=== PATIENT | male | born 1970 ===

== ENCOUNTER → 2020-06-07 11:39 | Outpatient (BNVA) | payer MEDICARE, SELFPAY | PROVIDERS: PCP Pediatrics; Visit Provider Internal Medicine Cardiovascular Disease | DX: Z45.02 Encounter for adjustment and management of automatic implantable cardiac defibrillator (principal); I10 Essential (primary) hypertension; I25.5 Ischemic cardiomyopathy; I25.10 Atherosclerotic heart disease of native coronary artery without angina pectoris; Z79.01 Long term (current) use of anticoagulants | CPT/HCPCS: 85025; 85610 ==

== ENCOUNTER → 2020-06-27 05:53 | Day surgery (SDC) | payer MEDICARE, SELFPAY ==
[2020-06-27 07:26] LABS: INR 1.23 (0.8-1.2)
== END ==
PROVIDERS: PCP Pediatrics; Visit Provider Internal Medicine Cardiovascular Disease
DX: Z45.02 Encounter for adjustment and management of automatic implantable cardiac defibrillator (principal); Z01.812 Encounter for preprocedural laboratory examination; Z45.010 Encounter for checking and testing of cardiac pacemaker pulse generator [battery]
CPT/HCPCS: 85610

== ENCOUNTER 2020-07-08 07:00 | Day surgery (SDC) | payer MEDICARE, SELFPAY ==
--- NOTE | 2020-07-05 12:42 | SUR.PREOP ---
PAT NOTE DR BENNETT WAS CALLED AT 0830 WITH THE PATIENT'S COVID NEGATIVE RESULT WELL AN INR OF 4.17. ORDERS RECEIVED FOR THE PATIENT TO REPEAT THE INR NOW IN [facility]. THE PATIENT WAS CALLED AND WILL HAVE THE [facility] FAX THE INR RESULTS TO [facility]. THE RESULTS WERE RECEIVED AT 1031. INR OF 3.[address] BENNETT. ORDERS WERE RECEIVED TO HAVE THE PATIENT HAVE INR RE-DRAWN ON SATURDAY MORNING. IF THE INR IS WNL THE PROCEDURE WILL BE DONE SaturdayJul AT 0830. THE PATIENT WAS NOTIFIED WELL THE [facility], ABOUT THE CHANGE. SCHEDULING WAS ALSO NOTIFIED.
[2020-07-08] VITALS (13 sets, daily range): BP systolic 102–168; BP diastolic 68–110; PULSE 80–82; RESP 0–28; TEMP 37; O2SAT 92–94
[2020-07-08] MEDS: sodium chloride 0.9% 1,000 ML 75 ML IV (07:54)
--- NOTE | 2020-07-08 08:28 | W.PM.OPSUD ---
Surgery/Procedure H&P Update DATE OF PROCEDURE: July 08, 2020 DATE H&P PERFORMED: 07/08/20 PREOP DIAGNOSIS: ICD,Elective replacement indication PLANNED PROCEDURE: Operation Date: 07/08/20 08:30 Proposed Procedures p Pacemaker Generator Change(Not Applicable) - Ami Haskins MD PATIENT REASSESSED PRIOR TO SEDATION, WITH NO CHANGE NOTED: Yes PHYSICAL EXAM: alert, oriented x 3, clear to auscultation bilaterally and regular rate & rhythm (Atrial flutter with controlled ventricular response rate) AIRWAY EVAL/ANESTHESIA PLAN: normal airway, see other exam findings, ASA III, Risks, benefits & alternatives of sedation and/or procedure discussed and Patient agrees to continue as planned
--- NOTE | 2020-07-08 08:30 | PM.HP ---
Providers/Chief Complaint Admitting Physician: LUDWIN Haskins MD Primary Care Provider: Allen Blanchard MD Chief Complaint: ICD, elective replacement indication History of Present Illness Stephen Miller is a 50 year old male with a history of coronary disease, myocardial infarction, coronary artery bypass surgery and previous PCI had a ICD implantation in 2013 for ventricular fibrillation. His ejection fraction was around 30 to 35%. He was found to have elected to replace medication for the ICD during the routine follow-up evaluation. ICD revision was requested by Dr. Guerrero. Patient denies any chest pain or chest tightness. No unusual shortness of breath. No fever or chills. No cough. He had a COVID-19 test and was found to be negative. Review of Systems Narrative: CONSTITUTIONAL: No fever or chills. EYES: No blurring of vision or other visual disturbances lately. ENT: No hoarseness of voice, auditory disturbances or sore throat. CARDIOVASCULAR: As mentioned above. RESPIRATORY: Has baseline shortness of breath with activities. GASTROINTESTINAL: No hematemesis or melena. GENITOURINARY: No dysuria or hematuria. INTEGUMENTARY: No skin rashes or history of skin cancer. NEURO: No transient ischemic attacks or amaurosis. PSYCHIATRIC: No history of psychosis or major depression. HEMATOLOGIC: No bleeding disorders or significant anemia. ENDOCRINE: No history of polyuria or polydipsia. MUSCULOSKELETAL: No recent joint pain or swelling. ALLERGY/IMMUNOLOGY: As mentioned above. Medications/Allergies Home Medications Medication Instructions Recorded Confirmed Last Taken Type amiodarone 200 mg tablet 200 mg PO DAILY #90 tab 05/16/20 07/07/20 Unknown Rx atenolol 25 mg tablet 25 mg PO DAILY 05/16/20 07/07/20 Unknown History bumetanide 2 mg tablet 2 mg PO DAILY 05/16/20 07/07/20 Unknown History clonazepam 1 mg tablet 1 mg PO BID 05/16/20 07/07/20 Unknown History clopidogrel 75 mg tablet 75 mg PO DAILY 05/16/20 07/07/20 Unknown History glipizide 10 mg tablet 10 mg PO DAILY 05/16/20 07/07/20 Unknown History metformin 500 mg tablet 500 mg PO BID 05/16/20 07/07/20 Unknown History potassium chloride 20 mEq 20 meq PO BID 05/16/20 07/07/20 Unknown History tablet,extended release(part/cryst) ramipril 10 mg capsule 20 mg PO DAILY cap 05/16/20 07/07/20 Unknown History simvastatin 40 mg tablet 40 mg PO DAILY #90 tab 05/16/20 07/07/20 Unknown Rx warfarin 10 mg tablet 10 mg PO DAILY 05/16/20 07/07/20 07/03/20 History allopurinol 100 mg tablet 100 mg PO DAILY tab 06/07/20 07/07/20 Unknown History enoxaparin 120 mg/0.8 mL 120 mg SUBCUT Q12H #3.2 ml 06/27/20 07/07/20 Unknown Rx subcutaneous syringe Allergies Allergy/AdvReac Type Severity Reaction Status Date / Time No Known Allergies Allergy Verified 06/07/20 11:03 PFSH Acute PFSH: Medical History (Updated 07/08/20 @ 08:35 by Ami Haskins MD) Atherosclerotic heart disease of [place] coronary artery without angina pectoris CAD (coronary artery disease) CHF (congestive heart failure) Clotting disorder Diabetes mellitus type 2 in obese Blood sugar has been fairly under control Hypertension Ischemic cardiomyopathy Obesity ANI (obstructive sleep apnea) Surgical History S/P CABG x 2 Social History Smoking and tobacco status: former smoker Vitals/I&O/Wt Last Vital Signs Pulse 80 07/08/20 08:15 Resp 0 L 07/08/20 08:15 BP 137/91 07/08/20 08:15 Pulse Ox 92 07/08/20 08:15 Physical Exam Narrative: EXAM NARRATIVE: GENERAL: The patient is alert and oriented times three. Not in any acute distress. HEENT: No significant pallor, icterus or lymphadenopathy.Oral cavity: There are no mucous membrane lesions. NECK: Trachea appears to be central. No masses noted. No JVD or thyromegaly appreciated. RESPIRATORY: Chest is symmetrical. No intercostals muscle retraction or any accessory muscle activation. There is no chest wall tenderness. Breath sounds are heard bilaterally. No rales or rhonchi heard. No evidence of any consolidation. BREASTS: Deferred. HEART: The heart sounds are normal. No S3 or S4. No significant murmurs. No pericardial rub ABDOMEN: No vessel pulsations or distention. No tenderness. No organomegaly appreciated. Bowel sounds are normally heard. : Deferred. RECTAL: Deferred. LYMPHATIC: No lymphadenopathy noted in the neck or groin. EXTREMITIES: No edema or cyanosis. No clubbing. Peripheral pulses are palpated in fairly good volume and amplitude MUSCULOSKELETAL: No acute joint deformities or swelling SKIN: There are no significant rashes or ecchymosis NEUROPSYCHIATRIC: The patient is alert and oriented x3. Appears to be in a good mood. No tremors or rigidity noted. A&P Assessment and plan (1) ICD (implantable cardioverter-defibrillator) battery depletion: Patient requires ICD revision. Discussed with the patient, the risk and benefits. The risk of bleeding, hematoma, vascular injury, infection, and other concomitant complications were explained in detail. The patient [] understood this well and consented to proceed. Patient is n.p.o. He is off the Coumadin. The INR was 1.6 yesterday. We will go ahead and plan for the procedure today. Status: Acute (2) Ischemic cardiomyopathy: Currently stable with no evidence of decompensation Status: Acute (3) Atherosclerotic heart disease of [place] coronary artery without angina pectoris: Patient has no chest pain or chest tightness. Status: Acute Qualifiers: [place] vs. transplanted heart: [place] heart Qualified Code(s): I25.10 - Atherosclerotic heart disease of [place] coronary artery without angina pectoris (4) ANI (obstructive sleep apnea): Patient is on CPAP and has been compliant Status: Acute (5) Hypertension: The blood pressure seems to be fairly under control Status: Acute Qualifiers: Hypertension type: essential hypertension Qualified Code(s): I10 - Essential (primary) hypertension (6) Obesity: Status: Acute Qualifiers: Body mass index: BMI 60.0-69.9 Obesity classification: adult class 3 (BMI >= 40) Obesity type: due to excess calories Serious obesity comorbidity presence: with serious comorbidity Qualified Code(s): E66.01 - Morbid (severe) obesity due to excess calories; Z68.44 - Body mass index [BMI] 60.0-69.9, adult (7) Diabetes mellitus type 2 in obese: Status: Acute (8) Clotting disorder: Of the Coumadin now. Will be restarted after the procedure Status: Acute Additional A&P Information Patient will be kept overnight for IV antibiotics. He will be discharged home in the morning. Attestations Medical Necessity Statement*: Patient to be admitted as outpatient in a bed. He will be given IV antibiotics for the next 24 hours. Discharge home in the morning Coding Level of Care Code Acute Machine Woodworking Sander for Chg Fwd Diagnoses ICD (implantable cardioverter-defibrillator) battery depletion Z45.02 Ischemic cardiomyopathy I25.5 Atherosclerotic heart disease of [place] coronary artery without angina pectoris I25.10 [place] vs. transplanted heart: [place] heart ANI (obstructive sleep apnea) G47.33 Hypertension I10 Hypertension type: essential hypertension Obesity E66.01; Z68.44 Body mass index: BMI 60.0-69.9 Obesity classification: adult class 3 (BMI >= 40) Obesity type: due to excess calories Serious obesity comorbidity presence: with serious comorbidity Diabetes mellitus type 2 in obese E11.69; E66.9 Clotting disorder D68.9
--- NOTE | 2020-07-08 10:09 | PM.OP ---
Operative Report Date of procedure: July 08, 2020 Pre-op Diagnosis: ICD,Elective replacement indication Procedure: PROCEDURE: ICD REVISION PREOPERATIVE DIAGNOSIS: ICD elective replacement indication. POSTOPERATIVE DIAGNOSIS: ICD elective replacement indication. ESTIMATED BLOOD LOSS: Around 5 milliliters. COMPLICATIONS: None. BRIEF HISTORY: The patient is 50-year-old white male who had an ICD implantation for ventricular fibrillation, ischemic cardiomyopathy. The patient was found to have elective replacement indication, during routine office followup evaluation. For further management of patient's condition and for the symptomatic bradycardia, the patient required an ICD revision. Patient has a history of intermittent atrial fibrillation and a clotting disorder The procedure was explained to the patient and his in detail with the risks and benefits. The risks of bleeding, hematoma, vascular injury, infection, blood clotting while being of the oral anticoagulant and other concomitant complications were explained in detail, which the patient understood well and consented to proceed. PROCEDURES PERFORMED: 1. Explantation of the old ICD device . 2. Implantation of the new ICD device The patient brought to the Cardiac Burn Table Operator. The left side of the neck and the subclavian area were cleaned and draped in a sterile fashion. 1% Xylocaine was used for local anesthetic agent. A 2 inch long incision was made just below the previous pacemaker scar. By sharp and blunt dissection, the ICD pocket was accessed. The old generator was delivered from the pocket. The generator was detached from the lead s. The new generator was attached to the lead. The ICD pocket was copiously irrigated with vancomycin solution. Complete hemostasis was achieved. The device was inserted in an antibiotic pouch,Tyrx. Complete hemostasis achieved. Sponge counts were confirmed. The ICD pocket was closed in layers. Skin was approximated using 4-0 Vicryl. EXPLANTED DEVICE: ICD Device: Date of implant 08/22/2013 Brand: [employer]. Model number: [id number]. Serial number: [id number]. IMPLANTED DEVICES: Ventricular Lead: Date of implantation: 08/22/2013 Model number: [id number] Serial number: [id number] Make: [employer]. Atrial Lead Date of implantation 08/22/2013 Model number [id number] Serial [id number] Implanted Generator: Date of implantation 07/08/2020 Brand: Leonardo Morgan DR. Model number: [id number] Serial number: [id number] TYRX The absorbable antibacterial envelope, large; make is [employer]onic The reference number is [id number]; lot number is [id number] Stimulation Threshold: Through the Device--the ventricular sensing was 11.2 millivolts. Lead impedance was 440 ohms and the pacing threshold was 0.75 volts at .5 milliseconds. The atrial sensing was 2.4 millivolts(pt was in atrial flutter). The lead impedance was 610 ohms and the pacing threshold was not obtained because of the atrial flutter. The HV lead impedance was 87 ohms The pacemaker was set for DDDR mode with an upper rate of 130 and a lower rate of 60. The DFT testing was not done The pacemaker was set for a DDDR mode-60/120 A pressure dressing was applied over the ICD site. The patient was transferred back to medical floor in stable condition.
[2020-07-08] MEDS: lisinopril 20 mg Tablet 40 MG PO (10:46)
[2020-07-08] MEDS: clopidogrel 75 mg Tablet PO (10:46)
[2020-07-08] MEDS: atorvastatin 40 mg Tablet 20 MG PO (10:46)
[2020-07-08] MEDS: enoxaparin 120 mg/0.8 mL Syringe SUBCUT (10:47)
--- NOTE | 2020-07-08 15:39 | PC.NURSE ---
up in room no distress at this time . to bsc in room at this time
[2020-07-08] MEDS: potassium chloride ER 20 mEq Tablet PO (17:31)
[2020-07-08] MEDS: metformin 500 mg Tablet PO (17:31)
[2020-07-08] MEDS: CLONazepam 1 mg Tablet PO (17:31)
[2020-07-08] MEDS: ceFAZolin 3,000 MG in sodium chloride 0.9% (100 ml) 100 ML 200 MG IV (17:32)
[2020-07-08] MEDS: HYDROcodone-acetaminophen 5-325 mg Tablet 1 TAB PO (18:16)
[2020-07-09] VITALS (8 sets, daily range): BP systolic 93–128; BP diastolic 63–89; PULSE 80; RESP 10–20; TEMP 36.9–37; O2SAT 90
[2020-07-09] MEDS: enoxaparin 120 mg/0.8 mL Syringe SUBCUT ×2 (00:25→11:11)
[2020-07-09] MEDS: ceFAZolin 3,000 MG in sodium chloride 0.9% (100 ml) 100 ML 200 MG IV (01:03)
[2020-07-09] MEDS: potassium chloride ER 20 mEq Tablet PO (08:48)
[2020-07-09] MEDS: atorvastatin 40 mg Tablet 20 MG PO (08:48)
[2020-07-09] MEDS: clopidogrel 75 mg Tablet PO (08:48)
[2020-07-09] MEDS: CLONazepam 1 mg Tablet PO (08:48)
[2020-07-09] MEDS: allopurinol 100 mg Tablet PO (08:48)
[2020-07-09] MEDS: bumetanide 1 mg Tablet 2 MG PO (08:49)
[2020-07-09] MEDS: lisinopril 20 mg Tablet 40 MG PO (08:49)
[2020-07-09] MEDS: atenolol 50 mg Tablet 25 MG PO (08:49)
[2020-07-09] MEDS: amiodarone 200 mg Tablet PO (08:49)
--- NOTE | 2020-07-09 10:43 | PM.DCS ---
Discharge Providers Date of Discharge: July 09, 2020 Attending Provider at Discharge: Natalia Fairbanks MD Primary Care Provider: Allen Blanchard MD Diagnoses at Discharge Discharge Diagnosis (1) ICD (implantable cardioverter-defibrillator) battery depletion: Status: Acute Permanent problem details: s/p ICD generator change -Doing well post procedure. (2) Ischemic cardiomyopathy: Status: Acute (3) Atherosclerotic heart disease of [place] coronary artery without angina pectoris: Status: Acute Qualifiers: [place] vs. transplanted heart: [place] heart Qualified Code(s): I25.10 - Atherosclerotic heart disease of [place] coronary artery without angina pectoris (4) ANI (obstructive sleep apnea): Status: Acute (5) Hypertension: Status: Acute Qualifiers: Hypertension type: essential hypertension Qualified Code(s): I10 - Essential (primary) hypertension (6) Obesity: Status: Acute Qualifiers: Body mass index: BMI 60.0-69.9 Obesity classification: adult class 3 (BMI >= 40) Obesity type: due to excess calories Serious obesity comorbidity presence: with serious comorbidity Qualified Code(s): E66.01 - Morbid (severe) obesity due to excess calories; Z68.44 - Body mass index [BMI] 60.0-69.9, adult (7) Diabetes mellitus type 2 in obese: Status: Acute Permanent problem details: Blood sugar has been fairly under control (8) Clotting disorder: Status: Acute Reason for Visit Reason for Visit: ICD, elective replacement indication Hospital Course Hospital Course 50-year-old man with past medical history of hypertension, hyperlipidemia, coronary artery disease s/p CABG x2, PCI in 2010, systolic congestive heart failure with EF of 30 to 35%, status post ICD placement. Patient's ICD was at [facility] and was admitted electively for generator change out. He did not have any recent ICD discharge and only had 1 shock somewhere in 2012. His coronary artery disease is stable. He used to follow with Dr. Allen Ng in [place]. We do not have records from his prior cardiology practice however patient is on amiodarone and Coumadin. He likely has A. fib history. 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 He is on long-term oral anticoagulation with Coumadin. Recently had to be taken off the Coumadin because of some bleeding complications. He has not had any recent thromboembolic episodes. He underwent explantation of the old ICD device and implantation of the new ICD device yesterday. IMPLANTED DEVICES: Date of implantation 07/08/2020 Brand: Leonardo Morgan DR. Model number: [id number] Serial number: [id number] Stimulation Threshold: Through the Device--the ventricular sensing was 11.2 millivolts. Lead impedance was 440 ohms and the pacing threshold was 0.75 volts at .5 milliseconds. The atrial sensing was 2.4 millivolts(pt was in atrial flutter). The lead impedance was 610 ohms and the pacing threshold was not obtained because of the atrial flutter. The HV lead impedance was 87 ohms. The pacemaker was set for DDDR mode with an upper rate of 130 and a lower rate of 60. The DFT testing was not done The pacemaker was set for a DDDR mode-60/120 Patient is doing well this morning and is eager to go home. Physical Exam Narrative: EXAM NARRATIVE: GENERAL:obese man sitting in bed in no acute distress HEENT: Extraocular movement intact. Pupils equal round reactive to light. No pallor or icterus. NECK: central trachea, No JVD. CARDIOVASCULAR SYSTEM: S1-S2 regular. No S3 or S4 present. No murmur rubs or gallops. RESPIRATORY SYSTEM: Chest clear to auscultation. No wheezes rhonchi or rubs heard. No use of accessory muscles. Left upper chest generator in situ; incision is well approximated with mild swelling and erythema. skin peeling from tape noted below the pacemaker site ABDOMEN: Soft, obese, nontender and nondistended. Normal bowel sounds present. EXTREMITIES: No cyanosis or clubbing. No edema. No signs of chronic venous insufficiency. CHANNEL INSTALLER: Patient is alert oriented ?3. No focal neurological deficits. SKIN: Normal turgor and temperature. Discharge Data Data Completed and Pending: Completed Studies During Hospitalization Category Date Time Status FUEL TECHNICIAN request for service Routin e Exams 07/08/20 07:30 Completed Vitals: Last Vital Signs Temp 98.6 F 07/09/20 04:00 Pulse 80 07/09/20 08:00 Resp 14 07/09/20 08:00 BP 119/73 07/09/20 08:00 Pulse Ox 90 07/09/20 04:00 Discharge Plan Discharge Patient Disposition: Home Condition: Stable Prescriptions: New Keflex 500 mg capsule 500 mg PO Q6H 5 Days Qty: 20 RF: 0 multivitamin Tablet 1 tab PO DAILY 14 Days Qty: 14 RF: 0 hydrocodone-acetaminophen 5-325 mg Tablet 1 tab PO Q6H PRN (Reason: Moderate Pain) 5 Days Qty: 15 RF: 0 Continued allopurinol 100 mg tablet 100 mg PO DAILY RF: 0 metformin 500 mg tablet 500 mg PO BID RF: 0 atenolol 25 mg tablet 25 mg PO DAILY RF: 0 clopidogrel 75 mg tablet 75 mg PO DAILY RF: 0 warfarin 10 mg tablet 10 mg PO DAILY RF: 0 ramipril 10 mg capsule 20 mg PO DAILY RF: 0 potassium chloride [Klor-Con M20] 20 mEq tablet,ER particles/crystals 20 meq PO BID RF: 0 glipizide 10 mg tablet 10 mg PO DAILY RF: 0 clonazepam 1 mg tablet 1 mg PO BID RF: 0 bumetanide 2 mg tablet 2 mg PO DAILY RF: 0 simvastatin 40 mg tablet 40 mg PO DAILY Qty: 90 RF: 3 amiodarone 200 mg tablet 200 mg PO DAILY Qty: 90 RF: 3 enoxaparin 120 mg/0.8 mL syringe 120 mg SUBCUT Q12H Qty: 3.2 RF: 0 Discharge Orders: Discharge Order (Routine); Ordered 07/08/20 Ordered By: Ami Haskins Referrals: Derek Guerrero M.D [Physician] - 2 months Ilana Anderson FNP [Nurse Practitioner] - 7-10 days (Post ICD generator change) Discharge Diet: Advance as tolerated Discharge Activity: Limit activity as instructed Patient Instructions: Pacemaker (DC), Post Pacemaker - Jozef Activity Restrictions/Additional Instructions: Patient is advised to continue taking the antibiotic for the next 5 days along with multivitamin daily for 2 weeks Appointment the [facility] next for a wound check and ICD check Keep the Covaderm dressing on till he is seen in the office in 1 week Minimize the movement of the left shoulder to 45 degrees for 10 days. Avoid any weight lifting or putting any weight on the left elbow for a week Appointment with Dr. Guerrero as scheduled and Ms. Anderson in 1 week Restart the Coumadin tomorrow with the 10 mg daily. PT/INR on Saturday in the office. Stop lovenox Saturday morning. Discharge Attestations Time Spent in Discharge Care*: greater than 30 min Specific Discharge Activities: educating patient, educating and/or supporting family/caregiver, documenting/other paperwork and evaluating patient/reviewing data Status at Discharge: Cognitive status at discharge: cognitively intact, Behavioral status at discharge: cooperative, Functional status at discharge: independent ambulation Overall status at discharge: patient is back to baseline Quality Metrics Clinical Quality Measures During this hospital stay, did patient experience: None Coding Level of Care Code Acute Curbstone Setter for Chg Fwd Diagnoses ICD (implantable cardioverter-defibrillator) battery depletion Z45.02 Ischemic cardiomyopathy I25.5 Atherosclerotic heart disease of [place] coronary artery without angina pectoris I25.10 [place] vs. transplanted heart: [place] heart ANI (obstructive sleep apnea) G47.33 Hypertension I10 Hypertension type: essential hypertension Obesity E66.01; Z68.44 Body mass index: BMI 60.0-69.9 Obesity classification: adult class 3 (BMI >= 40) Obesity type: due to excess calories Serious obesity comorbidity presence: with serious comorbidity Diabetes mellitus type 2 in obese E11.69; E66.9 Clotting disorder D68.9
== END 2020-07-09 11:00 | disposition home or self-care (01) ==
LOC: CCL 07:26 → ICU 08:30 → CCL 07-13 10:42 → ICU 07-13 10:56
PROVIDERS: PCP Pediatrics; Visit Provider Internal Medicine Cardiovascular Disease
DX: Z45.02 Encounter for adjustment and management of automatic implantable cardiac defibrillator (principal); I25.5 Ischemic cardiomyopathy; I25.10 Atherosclerotic heart disease of native coronary artery without angina pectoris; G47.33 Obstructive sleep apnea (adult) (pediatric); I11.0 Hypertensive heart disease with heart failure; I50.9 Heart failure, unspecified; E66.01 Morbid (severe) obesity due to excess calories; Z68.44 Body mass index [BMI] 60.0-69.9, adult; E11.69 Type 2 diabetes mellitus with other specified complication; D68.9 Coagulation defect, unspecified; Z79.84 Long term (current) use of oral hypoglycemic drugs; Z79.01 Long term (current) use of anticoagulants; Z95.1 Presence of aortocoronary bypass graft; Z87.891 Personal history of nicotine dependence
CPT/HCPCS: 12345; 33263; 96372; 97165; C1722; C1769; J0690; J1650; J2250; J3010; J7030; J7050